=== PATIENT | female | born 1995 | race Caucasian/White ===

== ENCOUNTER 2017-08-29 11:15 | Inpatient (IN) | payer MEDICAID ==
[~2017-08-29] VITALS: Ht 30.5 cm; Wt 0.5 kg
[~2017-08-29 11:15] MED LIST: PREN-96 PO
[2017-08-29] MEDS ORDERED: LACTATED RINGER'S 1,000 ML IV SCH (12:48)
[2017-08-29] MEDS: LACTATED RINGER'S 1,000 ML IV SCH ×2 (12:59→14:57)
[2017-08-29] MEDS ORDERED: NALBUPHINE HCL 10 MG/1ml INJECTION IM PRN (13:30)
[2017-08-29] MEDS ORDERED: WITCH HAZEL-GLYCERIN PAD TOP PRN (13:30)
[2017-08-29] MEDS ORDERED: PHISODERM TOP SOLN 240ML BTL TOP PRN (13:30)
[2017-08-29] MEDS ORDERED: DERMOPLAST 60ML BOTTLE TOP PRN (13:30)
[2017-08-29 13:39] LABS: Basophils # (auto) 0 uL; Eosinophils # (auto) 0 uL; Hemoglobin 10.5 g/dL (12.2-16.2); Monocytes # (auto) 1.2 uL
[2017-08-29 13:40] LABS: Basophils % (auto) 0.3 % (0.0-2.0); Eosinophils % (auto) 0.5 % (0.0-7.0); Lymphocytes # (auto) 1.6 uL; Lymphocytes % (auto) 17.5 % (10.0-50.0); Mean Corpuscular Hemoglobin 23.9 pg (28.0-32.0); Mean Corpuscular Hgb Conc. 31.9 g/dL (32.0-36.0); Mean Corpuscular Volume 74.9 fL (80.0-100.0); Monocytes % (auto) 13.5 % (0.0-12.0); Neutrophils # (auto) 6.2 uL; Neutrophils % (auto) 68.2 % (37.0-80.0); Nucleated Red Blood Cells % 0.1 %; Platelet Count (auto) 248 10^3/uL (140-450); Red Blood Cells 4.41 10^6/uL (4.0-5.20); Red Cell Distribution Width 16.2 % (11.8-14.3); Urine Bacteria NONE SEEN /hpf (None Seen); Urine Blood Negative /uL (Negative); Urine Mucus FEW (None Seen); Urine Specific Gravity 1.034 (1.001-1.035); Urine WBC 1 /hpf (0 - 5); White Blood Cell 9.2 10^3/uL (4.4-10.8)
[2017-08-29 13:51] LABS: INR 0.91 (0.9-1.15); Partial Thromboplastin Time 28.6 sec (22.64-33.71); Prothrombin Time 9.9 sec (9.37-12.3)
[2017-08-29 14:01] LABS: Albumin 2.8 g/dL (3.4-5.0); BUN/Creatinine Ratio 23.4; Bilirubin, Total 0.6 mg/dL (0.2-1.0); Calcium 8.5 mg/dL (8.5-10.1); Potassium 3.9 mmol/L (3.5-5.1); Total Protein 7.2 g/dL (6.4-8.2)
[2017-08-29] MEDS ORDERED: LACTATED RINGER'S 500 ML IV ONE (14:35)
[2017-08-29] MEDS ORDERED: TERBUTALINE SULFATE 1 MG/ML 1ML VIAL SC ONE (14:44)
[2017-08-29] MEDS ORDERED: TERBUTALINE SULFATE 1 MG/ML 1ML VIAL SC PRN (14:45)
[2017-08-29] MEDS ORDERED: NALBUPHINE HCL 10 MG/1ml INJECTION IV PRN (15:30)
[2017-08-29] MEDS ORDERED: ePHEDrine SULFATE 50 MG/ML AMP IV ONE ×2 (17:45→19:45)
[2017-08-29] MEDS ORDERED: fentaNYL W ROPIVACAINE 150 ML EPI SCH ×2 (17:45→19:45)
[2017-08-29] MEDS ORDERED: LIDOCAINE HCL 2 %PF INJ 10ML AMP IJ ONE (17:45)
[2017-08-29] MEDS ORDERED: fentaNYL CITRATE 100 MCG/2 ML VL IV ONE ×2 (17:45→19:45)
[2017-08-29] MEDS ORDERED: NALOXONE HCL 0.4 MG/ML VIAL IV ONE ×2 (17:45→19:45)
[2017-08-29] MEDS ORDERED: LACT. RINGERS/OXYTOCIN 20UNITS 1,000 ML IV SCH (18:46)
[2017-08-29] MEDS: HYDROCORTISONE 2.5% TOPICAL CREAM 30GM TUBE PR PRN (18:50)
[2017-08-29] MEDS ORDERED: METHYLERGONOVINE MALEATE 0.2 MG/ML AMP IM PRN (19:00)
[2017-08-29] MEDS ORDERED: LIDOCAINE 2%HCL (LOCAL ANESTH.) INJ 20ML MDV IJ ONE (19:00)
[2017-08-29] MEDS ORDERED: SODIUM CHLORIDE 0.9% 500 ML IV PRN (19:43)
[2017-08-30] MEDS: HYDROCORTISONE 2.5% TOPICAL CREAM 30GM TUBE PR PRN (01:00)
[2017-08-30] MEDS ORDERED: IBUPROFEN 600 MG TAB PO ONE (01:03)
[2017-08-30] MEDS ORDERED: ONDANSETRON HCL 4 MG/2 ML VIAL IV PRN (02:00)
[2017-08-30] MEDS: ACETAMINOPHEN 325 MG TAB PO PRN ×2 (02:59→08:16)
[2017-08-30 03:00] VITALS: BP 111/56
[2017-08-30] MEDS: IBUPROFEN 600 MG TAB PO PRN ×4 (05:22→23:40)
[2017-08-30 07:00] VITALS: BP 116/76
[2017-08-30] MEDS: DOCUSATE CALCIUM 240 MG CAP PO SCH (08:16)
[2017-08-30 11:20] VITALS: BP 118/72
[2017-08-30 15:23] VITALS: BP 113/61
[2017-08-30 19:00] VITALS: BP 113/69
[2017-08-30 23:04] VITALS: BP 107/56
[2017-08-31 03:15] VITALS: BP 109/64
[2017-08-31] MEDS: IBUPROFEN 600 MG TAB PO PRN (05:15)
[2017-08-31 07:00] VITALS: BP 103/63
[2017-08-31] MEDS: DOCUSATE CALCIUM 240 MG CAP PO SCH (09:14)
[2017-08-31] MEDS: ACETAMINOPHEN 325 MG TAB PO PRN (09:14)
[2017-08-31 11:00] VITALS: BP 110/74
== END 2017-08-31 14:40 | disposition home or self-care (01) | DRG 560 ==
LOC: LDRP 11:15 → OBSVTOIN 11:15 → LDRP 12:42
PROVIDERS: ADMIT Obstetrics & Gynecology; ATTEND Obstetrics & Gynecology
PROC: 10E0XZZ Delivery of Products of Conception, External Approach (ICD-10-PCS; principal; 2017-08-29)
PROC: 3E0R3BZ Introduction of Anesthetic Agent into Spinal Canal, Percutaneous Approach (ICD-10-PCS; 2017-08-29)
PROC: 00HU33Z Insertion of Infusion Device into Spinal Canal, Percutaneous Approach (ICD-10-PCS; 2017-08-29)
DX: O80 Encounter for full-term uncomplicated delivery (principal); Z37.0 Single live birth; Z3A.40 40 weeks gestation of pregnancy
CPT/HCPCS: 36415; 51702; 59025; 59409; 62282; 80053; 81001; 85025; 85610; 85730; 86850; 86900; 86901; 94760; 96361; 96372; 96375; J2590; J3010

== ENCOUNTER 2018-06-05 08:00 | Observation (INO) | payer MEDICAID, OTHER ==
[2018-06-05] MEDS ORDERED: TERBUTALINE SULFATE 1 MG/ML 1ML VIAL SC ONE (08:49)
[2018-06-05] MEDS: TERBUTALINE SULFATE 1 MG/ML 1ML VIAL SC SCH ×2 (08:52→09:14)
[2018-06-05] MEDS ORDERED: LACTATED RINGER'S 1,000 ML IV ONE (09:54)
[2018-06-05] MEDS ORDERED: LACTATED RINGER'S 500 ML IV ONE (10:15)
[2018-06-05 10:23] LABS: Urine Bacteria NONE SEEN /hpf (None Seen); Urine Blood Negative /uL (Negative); Urine Mucus MODERATE (None Seen); Urine Specific Gravity 1.038 (1.001-1.035); Urine WBC 1 /hpf (0 - 5)
[2018-06-05 10:34] LABS: Basophils # (auto) 0 uL; Basophils % (auto) 0.3 % (0.0-2.0); Eosinophils # (auto) 0.1 uL; Eosinophils % (auto) 0.6 % (0.0-7.0); Hematocrit 33.2 % (36.0-46.0); Hemoglobin 10.6 g/dL (12.2-16.2); Lymphocytes # (auto) 1.7 uL; Lymphocytes % (auto) 13.2 % (10.0-50.0); Mean Corpuscular Hemoglobin 24.3 pg (28.0-32.0); Mean Corpuscular Hgb Conc. 31.9 g/dL (32.0-36.0); Mean Corpuscular Volume 76.2 fL (80.0-100.0); Monocytes # (auto) 0.8 uL; Neutrophils # (auto) 10.5 uL; Neutrophils % (auto) 79.9 % (37.0-80.0); Platelet Count (auto) 219 10^3/uL (140-450); Red Blood Cells 4.35 10^6/uL (4.0-5.20); Red Cell Distribution Width 14.3 % (11.8-14.3); White Blood Cell 13.2 10^3/uL (4.4-10.8)
[2018-06-05 10:37] LABS: Albumin 2.7 g/dL (3.4-5.0); Calcium 8.1 mg/dL (8.5-10.1); Potassium 3.2 mmol/L (3.5-5.1)
[2018-06-05 10:40] LABS: BUN/Creatinine Ratio 16.9; Bilirubin, Total 0.3 mg/dL (0.2-1.0); Total Protein 6.9 g/dL (6.4-8.2)
[2018-06-05 22:59] LABS: Alcohol, Urine < 3.0 mg/dL (0-5); Amphetamine Screen, Urine NEGATIVE (NEGATIVE); Barbiturate Scree,Urine NEGATIVE (NEGATIVE); Benzodiazephine Screen, Urine NEGATIVE (NEGATIVE); Cannabinoid Screen, Urine NEGATIVE (NEGATIVE); Cocaine Screen, Urine NEGATIVE (NEGATIVE); Opiate Scree,Urine NEGATIVE (NEGATIVE); Phencyclidine Screen, Urine NEGATIVE (NEGATIVE)
== END 2018-06-05 13:40 | disposition home or self-care (01) | DRG 566 ==
LOC: LDRP 08:00
PROVIDERS: ADMIT Obstetrics & Gynecology; ATTEND Obstetrics & Gynecology
DX: O30.002 Twin pregnancy, unspecified number of placenta and unspecified number of amniotic sacs, second trimester (principal); O60.02 Preterm labor without delivery, second trimester; O62.9 Abnormality of forces of labor, unspecified; Z3A.21 21 weeks gestation of pregnancy
CPT/HCPCS: 36415; 59025; 76815; 80053; 80307; 81001; 81002; 85025; 96372; G0378; J3105; 96365; 96366

== ENCOUNTER 2018-08-06 11:52 | Observation (INO) | payer MEDICAID | END 2018-08-06 13:55 | disposition home or self-care (01) | DRG 566 | LOC: LDRP 11:52 | PROVIDERS: ADMIT Obstetrics & Gynecology; ATTEND Obstetrics & Gynecology | DX: O30.003 Twin pregnancy, unspecified number of placenta and unspecified number of amniotic sacs, third trimester (principal); Z3A.30 30 weeks gestation of pregnancy | CPT/HCPCS: 59025; 76818; 81002; G0378 ==

== ENCOUNTER 2018-08-13 15:43 | Observation (INO) | payer MEDICAID ==
[2018-08-13] MEDS ORDERED: FERR27TA2 PO (16:58)
[2018-08-13] MEDS ORDERED: NIF10C PO (16:58)
[2018-08-13] MEDS ORDERED: FOLI1TAB6 PO (16:58)
== END 2018-08-13 17:50 | disposition home or self-care (01) | DRG 566 ==
LOC: LDRP 15:43
PROVIDERS: ADMIT Obstetrics & Gynecology; ATTEND Obstetrics & Gynecology
DX: O30.003 Twin pregnancy, unspecified number of placenta and unspecified number of amniotic sacs, third trimester (principal); Z3A.31 31 weeks gestation of pregnancy
CPT/HCPCS: 59025; 76818; 81002; G0378

== ENCOUNTER 2018-09-07 07:40 | Observation (INO) | payer MEDICAID ==
[~2018-09-07] VITALS: Ht 177.8 cm; Wt 94.3 kg
[~2018-09-07 07:40] MED LIST changes: +FERR27TA2 PO; +FOLI1TAB6 PO; +NIF10C PO
[2018-09-07] MEDS ORDERED: LACTATED RINGER'S 1,000 ML IV ONE (08:08)
[2018-09-07] MEDS ORDERED: TERBUTALINE SULFATE 1 MG/ML 1ML VIAL SC SCH (08:15)
== END 2018-09-07 11:05 | disposition home or self-care (01) | DRG 563 ==
LOC: LDRP 07:40
PROVIDERS: ADMIT Specialist; ATTEND Specialist
DX: O60.03 Preterm labor without delivery, third trimester (principal); Z3A.34 34 weeks gestation of pregnancy
CPT/HCPCS: 59025; 76818; 81002; 96372; G0378; J3105

== ENCOUNTER 2018-09-08 10:45 | Observation (INO) | payer MEDICAID ==
[2018-09-08] MEDS ORDERED: NIFEdipine 10 MG CAP PO ONE (14:30)
== END 2018-09-08 15:50 | disposition home or self-care (01) | DRG 566 ==
LOC: LDRP 10:45
PROVIDERS: ADMIT Specialist; ATTEND Specialist
DX: O26.893 Other specified pregnancy related conditions, third trimester (principal); N89.8 Other specified noninflammatory disorders of vagina; R10.2 Pelvic and perineal pain; O21.2 Late vomiting of pregnancy; Z3A.34 34 weeks gestation of pregnancy
CPT/HCPCS: 59025; 76705; 76815; 81002; G0378; 96361; 96365

== ENCOUNTER 2018-09-14 15:31 | Observation (INO) | payer MEDICAID | END 2018-09-14 17:20 | disposition home or self-care (01) | DRG 566 | LOC: LDRP 15:31 | PROVIDERS: ADMIT Specialist; ATTEND Specialist | DX: O30.003 Twin pregnancy, unspecified number of placenta and unspecified number of amniotic sacs, third trimester (principal); O62.9 Abnormality of forces of labor, unspecified; Z3A.35 35 weeks gestation of pregnancy | CPT/HCPCS: 59025; 76818; 81002; G0378 ==

== ENCOUNTER 2018-09-28 09:10 | Inpatient (IN) | payer MEDICAID ==
[~2018-09-28] VITALS: Ht 180.3 cm; Wt 85.3 kg
[2018-09-28] MEDS ORDERED: LACT. RINGERS/OXYTOCIN 20UNITS 1,000 ML IV SCH (10:11)
[2018-09-28] MEDS ORDERED: LACTATED RINGER'S 1,000 ML IV SCH (10:11)
[2018-09-28] MEDS ORDERED: PHISODERM TOP SOLN 240ML BTL TOP PRN (10:15)
[2018-09-28] MEDS ORDERED: WITCH HAZEL-GLYCERIN PAD TOP PRN (10:15)
[2018-09-28] MEDS ORDERED: DERMOPLAST 60ML BOTTLE TOP PRN (10:15)
[2018-09-28] MEDS ORDERED: METHYLERGONOVINE MALEATE 0.2 MG/ML AMP IM PRN (10:15)
[2018-09-28] MEDS ORDERED: NALBUPHINE HCL 10 MG/1ml INJECTION IV PRN (10:15)
[2018-09-28 11:09] LABS: Basophils # (auto) 0 uL; Eosinophils # (auto) 0.1 uL; Hemoglobin 12.2 g/dL (12.2-16.2); Lymphocytes # (auto) 1.4 uL; Mean Corpuscular Hgb Conc. 32.6 g/dL (32.0-36.0); Monocytes # (auto) 1.1 uL
[2018-09-28 11:11] LABS: Basophils % (auto) 0.3 % (0.0-2.0); Eosinophils % (auto) 0.9 % (0.0-7.0); Hematocrit 37.3 % (36.0-46.0); Lymphocytes % (auto) 15.8 % (10.0-50.0); Mean Corpuscular Volume 76.8 fL (80.0-100.0); Monocytes % (auto) 12.5 % (0.0-12.0); Neutrophils # (auto) 6.2 uL; Neutrophils % (auto) 70.5 % (37.0-80.0); Platelet Count (auto) 216 10^3/uL (140-450); Red Blood Cells 4.86 10^6/uL (4.0-5.20); Red Cell Distribution Width 16.6 % (11.8-14.3); White Blood Cell 8.9 10^3/uL (4.4-10.8)
[2018-09-28 11:20] LABS: INR 0.89 (0.9-1.15); Partial Thromboplastin Time 26.7 sec (23.78-33.04); Prothrombin Time 9.6 sec (9.27-12.13)
[2018-09-28 11:53] LABS: Calcium 8.9 mg/dL (8.5-10.1); Potassium 3.8 mmol/L (3.5-5.1)
[2018-09-28 12:03] LABS: Albumin 2.7 g/dL (3.4-5.0)
[2018-09-28 12:31] LABS: BUN/Creatinine Ratio 10.2; Bilirubin, Total 0.5 mg/dL (0.2-1.0)
[2018-09-28 13:31] LABS: Urine Bacteria FEW /hpf (None Seen); Urine Blood Negative /uL (Negative); Urine Mucus FEW (None Seen); Urine WBC 2 /hpf (0 - 5)
[2018-09-28 14:57] LABS: Alcohol, Urine < 3.0 mg/dL (0-5); Amphetamine Screen, Urine NEGATIVE (NEGATIVE); Barbiturate Scree,Urine NEGATIVE (NEGATIVE); Benzodiazephine Screen, Urine NEGATIVE (NEGATIVE); Cannabinoid Screen, Urine NEGATIVE (NEGATIVE); Cocaine Screen, Urine NEGATIVE (NEGATIVE); Opiate Scree,Urine NEGATIVE (NEGATIVE); Phencyclidine Screen, Urine NEGATIVE (NEGATIVE)
[2018-09-28] MEDS ORDERED: PROMETHAZINE HCL 25 MG/ML 1ML ONE (15:27)
[2018-09-28] MEDS ORDERED: PROMETHAZINE HCL 25 MG/ML 1ML IV PRN (15:30)
[2018-09-28 17:15] LABS: Uric Acid 4.4 mg/dL (2.6-6.0)
[2018-09-28] MEDS ORDERED: ePHEDrine SULFATE 50 MG/ML AMP IV ONE ×2 (17:15→19:45)
[2018-09-28] MEDS ORDERED: fentaNYL W ROPIVACAINE 150 ML EPI SCH ×2 (17:15→19:45)
[2018-09-28] MEDS ORDERED: LIDOCAINE W/ EPINEPHRINE 1 % INJ 30ML ONE (18:10)
[2018-09-28] MEDS ORDERED: SODIUM CHLORIDE 0.9% 500 ML IV PRN (19:40)
[2018-09-28] MEDS ORDERED: NALOXONE HCL 0.4 MG/ML VIAL IV ONE (19:45)
[2018-09-28] MEDS ORDERED: CARBOPROST TROMETHAMINE 250 MCG/1ML VIAL IM ONE (21:28)
[2018-09-28] MEDS ORDERED: SUCCINYLCHOLINE CHLORIDE 20 MG/ML 10ML VIAL IV ONE (21:28)
[2018-09-28] MEDS ORDERED: OXYTOCIN 10 UNIT/ML 10ML VIAL ONE ×2 (22:09→22:10)
[2018-09-28] MEDS ORDERED: PROPOFOL 10 MG/ML 20 ML IV ONE (22:15)
[2018-09-28] MEDS ORDERED: fentaNYL CITRATE 100 MCG/2 ML VL ONE (22:15)
[2018-09-28] MEDS ORDERED: ROCURONIUM 10MG/ML 10ML VIAL IV ONE (22:22)
[2018-09-28] MEDS ORDERED: MIDAZOLAM HCL 1MG/1ML-2 ML VIAL ONE ×2 (22:48→23:24)
[2018-09-28 23:25] VITALS: BP 129/67
[2018-09-28] MEDS ORDERED: ePHEDrine SULFATE 50 MG/ML AMP IV PRN (23:45)
[2018-09-28] MEDS ORDERED: hydrALAZINE HCL 20 MG/ML VL IV PRN (23:45)
[2018-09-28] MEDS ORDERED: HYDROmorphone HCL 2 MG/ML VL IV PRN (23:45)
[2018-09-28] MEDS ORDERED: ONDANSETRON HCL 4 MG/2 ML VIAL IV ONE (23:45)
[2018-09-29] VITALS (13 sets, daily range): BP systolic 112–122; BP diastolic 55–75
[2018-09-29] MEDS ORDERED: OXYTOCIN 10UNIT/ML 1ML VIAL ONE (00:07)
[2018-09-29] MEDS ORDERED: HYDROmorphone HCL 2 MG/ML VL IV PRN (00:15)
[2018-09-29] MEDS ORDERED: ONDANSETRON HCL 4 MG/2 ML VIAL IV PRN (00:15)
[2018-09-29] MEDS ORDERED: HYDROmorphone HCL 2 MG/ML VL ONE (00:16)
[2018-09-29] MEDS: HYDROmorphone HCL 2 MG/ML VL IV PRN ×5 (00:19→04:22)
--- NOTE | 2018-09-29 00:46 | NUR ---
Post Op for LDRP: Received patient from PACU via bed to room 1. Patient A/A/Ox4, abdominal binder and bilateral SCD's are in place, IV fluids placed on pump and infusing per order, incisional site dressing clean/dry/intact and Govea Catheter to gravity draining clear yellow urine. Incentive Spirometer at bedside and instruction on proper use with return demonstration done by patient.
[2018-09-29] MEDS ORDERED: ACETAMINOPHEN IV 1000 MG/100ML (10MG/ML) IV PRN (01:15)
[2018-09-29 01:57] LABS: White Blood Cell 18.3 10^3/uL (4.4-10.8)
[2018-09-29 01:59] LABS: Basophils # (auto) 0.1 uL; Basophils % (auto) 0.3 % (0.0-2.0); Eosinophils # (auto) 0 uL; Hemoglobin 11.6 g/dL (12.2-16.2); Lymphocytes # (auto) 1.2 uL; Lymphocytes % (auto) 6.7 % (10.0-50.0); Mean Corpuscular Hemoglobin 26.1 pg (28.0-32.0); Mean Corpuscular Hgb Conc. 32.3 g/dL (32.0-36.0); Mean Corpuscular Volume 80.8 fL (80.0-100.0); Monocytes # (auto) 1.6 uL; Monocytes % (auto) 8.9 % (0.0-12.0); Neutrophils # (auto) 15.4 uL; Neutrophils % (auto) 84.1 % (37.0-80.0); Nucleated Red Blood Cells % 0.1 %; Platelet Count (auto) 164 10^3/uL (140-450); Red Blood Cells 4.45 10^6/uL (4.0-5.20); Red Cell Distribution Width 17.3 % (11.8-14.3)
[2018-09-29] MEDS: ceFAZolin 1GM/50ML 50 ML IV SCH ×3 (05:42→21:49)
--- NOTE | 2018-09-29 06:10 | NUR ---
ASSUMED CARE OF STABLE PT AFTER RECEIVING REPORT FROM Dre BAIG RN.
[2018-09-29 07:07] LABS: RPR Non Reactive (Non Reactive)
--- NOTE | 2018-09-29 10:00 | NUR ---
CREAM DIPPER NOTIFIED AND INFORMED THAT A 0600 CBC WAS ORDERED AND HAS NOT BEEN DRAWN. TECH STATES THEY ARE REALLY SHORT STAFFED AND IT WILL BE DRAWN.
--- NOTE | 2018-09-29 11:40 | NUR ---
DR ALEGRE AT BEDSIDE TO CHECK ON PT STATUS. DOCTOR ASSESSED URINE OUTPUT AND UPDATED PT ON THE HOW THE SURGERY WENT. WILL CONTINUE PLAN OF CARE FOR PT.
--- NOTE | 2018-09-29 11:50 | NUR ---
LAB AT BEDSIDE TO DRAW CBC.
[2018-09-29] MEDS: LACTATED RINGER'S 1,000 ML IV SCH (12:00)
[2018-09-29] MEDS ORDERED: HYDROcodone-ACET 5/325MG TAB PO PRN (12:15)
[2018-09-29 12:24] LABS: Basophils # (auto) 0 uL; Eosinophils # (auto) 0 uL; Eosinophils % (auto) 0.3 % (0.0-7.0); Lymphocytes # (auto) 1.5 uL; Mean Corpuscular Hemoglobin 26.4 pg (28.0-32.0)
[2018-09-29 12:26] LABS: Basophils % (auto) 0.1 % (0.0-2.0); Hematocrit 31.3 % (36.0-46.0); Hemoglobin 10.1 g/dL (12.2-16.2); Lymphocytes % (auto) 9.3 % (10.0-50.0); Mean Corpuscular Hgb Conc. 32.3 g/dL (32.0-36.0); Mean Corpuscular Volume 81.7 fL (80.0-100.0); Monocytes # (auto) 1.8 uL; Neutrophils # (auto) 12.9 uL; Neutrophils % (auto) 79.3 % (37.0-80.0); Platelet Count (auto) 158 10^3/uL (140-450); Red Blood Cells 3.83 10^6/uL (4.0-5.20); Red Cell Distribution Width 17.2 % (11.8-14.3); White Blood Cell 16.3 10^3/uL (4.4-10.8)
[2018-09-29] MEDS: HYDROcodone-ACET 5/325MG TAB PO PRN ×3 (13:21→21:47)
--- NOTE | 2018-09-29 13:21 | NUR ---
PT MEDICATED WITH NORCO 10 MG PO PER ORDERS FOR INCISIONAL PAIN RATING 7/10.
[2018-09-29] MEDS ORDERED: DOCUSATE SOD 100 MG CAP PO ONE (13:33)
--- NOTE | 2018-09-29 17:04 | NUR ---
PT MEDICATED WITH NORCO 10 MG PO PER ORDERS FOR INCISIONAL PAIN RATING 7/10.
--- NOTE | 2018-09-29 17:30 | NUR ---
VALLEJO CATH REMOVED, 700 ML'S OF JASON URINE NOTED, PT TOLERATED WELL.
--- NOTE | 2018-09-29 17:45 | NUR ---
Ambulation: Pericare complete while pt still in bed. Patient OOB with standby assistance by RN and DENISE. Patient ambulated a few steps very slowly. Clean gown provided and bed linen changed. Patient ambulated back to bed with very slow steady gait assisted by Horacio WALKER RN and this RN, polly rey applied with assistance from Dre Noble RN. Pt condition stable at this time.
--- NOTE | 2018-09-29 19:00 | NUR ---
REPORT ON STABLE PT TO Dre BALDWIN RN.
--- NOTE | 2018-09-29 19:40 | NUR ---
Visual assessment of incision complete. Incision open to air, clean, dry, without any noted redness/drainage or warmth at site.
[2018-09-29] MEDS ORDERED: ceFAZolin 1GM/50ML 50 ML IV ONE (21:12)
[2018-09-29] MEDS: DOCUSATE SOD 100 MG CAP PO SCH (21:47)
[2018-09-30 03:17] VITALS: BP 119/74
[2018-09-30] MEDS: HYDROcodone-ACET 5/325MG TAB PO PRN ×5 (04:21→22:51)
[2018-09-30 07:17] LABS: Basophils # (auto) 0 uL; Eosinophils # (auto) 0 uL; Eosinophils % (auto) 0.1 % (0.0-7.0)
[2018-09-30 07:20] LABS: Basophils % (auto) 0.1 % (0.0-2.0); Hematocrit 27.7 % (36.0-46.0); Hemoglobin 9.1 g/dL (12.2-16.2); Lymphocytes # (auto) 1.4 uL; Lymphocytes % (auto) 10.3 % (10.0-50.0); Mean Corpuscular Hemoglobin 26.5 pg (28.0-32.0); Mean Corpuscular Hgb Conc. 32.9 g/dL (32.0-36.0); Mean Corpuscular Volume 80.5 fL (80.0-100.0); Monocytes # (auto) 1.3 uL; Monocytes % (auto) 9.8 % (0.0-12.0); Neutrophils # (auto) 10.7 uL; Neutrophils % (auto) 79.7 % (37.0-80.0); Platelet Count (auto) 173 10^3/uL (140-450); Red Blood Cells 3.44 10^6/uL (4.0-5.20); White Blood Cell 13.4 10^3/uL (4.4-10.8)
[2018-09-30 08:05] VITALS: BP 123/73
[2018-09-30] MEDS: SIMETHICONE 80 MG CHEWABLE TABLET PO PRN ×3 (09:01→22:50)
[2018-09-30] MEDS: DOCUSATE SOD 100 MG CAP PO SCH ×2 (10:30→22:50)
[2018-09-30 10:43] VITALS: BP 96/67
[2018-09-30 15:59] VITALS: BP 121/77
[2018-09-30] MEDS: LACTATED RINGER'S 1,000 ML IV SCH (18:00)
--- NOTE | 2018-09-30 19:19 | NUR ---
Lower abdominal incision clean, dry and well approximated. [place] present and intact. Addendum: 09/30/18 at 1921 by Kailee Noble RN Amended: Links added.
[2018-09-30 19:22] VITALS: BP 124/79
[2018-09-30] MEDS: IBUPROFEN 800 MG TAB PO PRN (21:17)
[2018-09-30 22:55] VITALS: BP 117/59
[2018-10-01] MEDS: LACTATED RINGER'S 1,000 ML IV SCH (02:00)
[2018-10-01 03:00] VITALS: BP 119/75
[2018-10-01] MEDS: HYDROcodone-ACET 5/325MG TAB PO PRN ×5 (04:36→21:51)
[2018-10-01] MEDS: IBUPROFEN 800 MG TAB PO PRN ×3 (06:01→23:21)
[2018-10-01 07:30] VITALS: BP 110/72
[2018-10-01] MEDS ORDERED: diphenhdrAMINE HCL 50 MG/1 ML VL IV PRN (08:00)
[2018-10-01] MEDS: DOCUSATE SOD 100 MG CAP PO SCH ×2 (10:00→22:00)
[2018-10-01 11:30] VITALS: BP 111/59
[2018-10-01] MEDS: SIMETHICONE 80 MG CHEWABLE TABLET PO PRN (14:58)
[2018-10-01 15:30] VITALS: BP 119/63
[2018-10-01 18:45] VITALS: BP 125/76
[2018-10-01 23:02] VITALS: BP 125/71
[2018-10-02] MEDS: HYDROcodone-ACET 5/325MG TAB PO PRN ×2 (02:28→08:17)
[2018-10-02 03:07] VITALS: BP 125/71
[2018-10-02] MEDS ORDERED: TETANUS-DIPTH-ACEL PERTUSSIS 0.5ML SYRG IM ONE (04:15)
[2018-10-02] MEDS ORDERED: diphenhdrAMINE HCL 25 MG CAP PO ONE (04:45)
[2018-10-02 07:00] VITALS: BP 126/60
--- NOTE | 2018-10-02 08:00 | NUR ---
Astrid Gonzalez belt fixer made rounds with SMO[employer] [facility]itt. Sbar given. Carlos removed shaista. Placed steri strips to site. Pt tolerated well. No redness, edema, ecchimosis, drainage, edges well approximated.
[2018-10-02] MEDS: DOCUSATE SOD 100 MG CAP PO SCH (10:00)
[2018-10-02 11:00] VITALS: BP 116/65
[2018-10-02] MEDS: IBUPROFEN 800 MG TAB PO PRN (12:43)
--- NOTE | 2018-10-02 13:00 | NUR ---
Discharge: Discharge instructions given as ordered. 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 All questions and concerns addressed. Patient verbalized understanding. Medication reconciliation completed and copy given to patient. All required/requested vaccines given and copies of vaccinations given to patient. Patient encouraged to prepare to depart unit.
--- NOTE | 2018-10-02 14:21 | NUR ---
Discharge: Patient taken to vehicle via wheelchair with all personal belongings, accompanied by staff and family member. No distress noted at time of departure, no adverse changes in status since initial assessment.
== END 2018-10-02 14:20 | disposition home or self-care (01) | DRG 540 ==
LOC: LDRP 09:10
PROVIDERS: ADMIT Specialist; ATTEND Specialist
PROC: 10D00Z1 Extraction of Products of Conception, Low, Open Approach (ICD-10-PCS; 2018-09-28)
PROC: 3E0S3BZ Introduction of Anesthetic Agent into Epidural Space, Percutaneous Approach (ICD-10-PCS; 2018-09-28)
PROC: 00HU33Z Insertion of Infusion Device into Spinal Canal, Percutaneous Approach (ICD-10-PCS; 2018-09-28)
PROC: 10907ZC Drainage of Amniotic Fluid, Therapeutic from Products of Conception, Via Natural or Artificial Opening (ICD-10-PCS; 2018-09-28)
PROC: 10E0XZZ Delivery of Products of Conception, External Approach (ICD-10-PCS; 2018-09-28)
PROC: 30233N1 Transfusion of Nonautologous Red Blood Cells into Peripheral Vein, Percutaneous Approach (ICD-10-PCS; 2018-09-28)
PROC: 0UB70ZZ Excision of Bilateral Fallopian Tubes, Open Approach (ICD-10-PCS; principal; 2018-09-28 22:05)
PROC: 30233K1 Transfusion of Nonautologous Frozen Plasma into Peripheral Vein, Percutaneous Approach (ICD-10-PCS; 2018-09-29)
DX: O32.1XX0 Maternal care for breech presentation, not applicable or unspecified (principal); Z37.2 Twins, both liveborn; O30.043 Twin pregnancy, dichorionic/diamniotic, third trimester; O62.2 Other uterine inertia; O67.9 Intrapartum hemorrhage, unspecified; Z30.2 Encounter for sterilization; Z3A.37 37 weeks gestation of pregnancy
CPT/HCPCS: 36415; 36430; 51702; 59025; 59409; 62282; 76815; 80053; 80307; 81001; 81002; 84550; 85025; 85610; 85730; 86592; 86850; 86900; 86901; 86920; 90715; 94002; 94762; 96361; 96365; 96366; 96374; 96375; A6257; G0378; J0131; J0330; J0690; J2250; J2590; J2704; J3010

== ENCOUNTER 2020-03-22 10:27 | Emergency (ER) | payer MEDICAID ==
[~2020-03-22] VITALS: Ht 180.3 cm; Wt 72.6 kg
[~2020-03-22 10:27] MED LIST changes: -NIF10C PO
[2020-03-22 11:06] LABS: Eosinophils # (auto) 0.1 10 ^3/uL (0-0.8); Eosinophils % (auto) 1.5 % (0.0-7.0); Lymphocytes % (auto) 29.3 % (10.0-50.0); Monocytes # (auto) 0.7 10 ^3/uL (0-1.3); Neutrophils # (auto) 3.6 10 ^3/uL (1.6-8.6)
[2020-03-22 11:08] LABS: Basophils # (auto) 0 10 ^3/uL (0-0.2); Basophils % (auto) 0.7 % (0.0-2.0); Hematocrit 36.9 % (36.0-46.0); Hemoglobin 11.8 g/dL (12.2-16.2); Lymphocytes # (auto) 1.8 10 ^3/uL (0.4-5.4); Mean Corpuscular Hemoglobin 23.7 pg (28.0-32.0); Mean Corpuscular Hgb Conc. 32.1 g/dL (32.0-36.0); Mean Corpuscular Volume 73.7 fL (80.0-100.0); Neutrophils % (auto) 57.5 % (37.0-80.0); Nucleated Red Blood Cells % 0.1 %; Platelet Count (auto) 349 10^3/uL (140-450); Red Cell Distribution Width 15.9 % (11.8-14.3); White Blood Cell 6.2 10^3/uL (4.4-10.8)
[2020-03-22 11:23] LABS: Albumin 3.8 g/dL (3.4-5.0); Potassium 3.7 mmol/L (3.5-5.1)
[2020-03-22 11:27] LABS: Bilirubin, Total 0.5 mg/dL (0.2-1.0); Total Protein 7.7 g/dL (6.4-8.2)
[2020-03-22 15:00] VITALS: BP 132/91
[2020-03-22 15:18] LABS: Urine Bacteria FEW /hpf (None Seen); Urine Blood 3+ /uL (Negative); Urine Mucus FEW (None Seen); Urine Specific Gravity 1.031 (1.001-1.035); Urine WBC 10 /hpf (0 - 5)
== END 2020-03-22 16:30 | disposition home or self-care (01) ==
LOC: ER 10:27
DX: O20.9 Hemorrhage in early pregnancy, unspecified (principal)
CPT/HCPCS: 36415; 76801; 80053; 81001; 84702; 85025

== ENCOUNTER 2020-03-24 08:44 | Emergency (ER) | payer MEDICAID ==
[~2020-03-24] VITALS: Ht 180.3 cm; Wt 72.6 kg
[2020-03-24 09:21] LABS: Urine Bacteria FEW /hpf (None Seen); Urine Blood 3+ /uL (Negative); Urine Mucus FEW (None Seen); Urine Specific Gravity 1.012 (1.001-1.035); Urine WBC <1 /hpf (0 - 5)
[2020-03-24 10:23] VITALS: BP 128/88
== END 2020-03-24 10:46 | disposition home or self-care (01) ==
LOC: ER 08:44
DX: O20.0 Threatened abortion (principal)
CPT/HCPCS: 36415; 81001; 84702

== ENCOUNTER 2021-06-24 11:14 | Emergency (ER) | payer MEDICAID ==
[~2021-06-24] VITALS: Ht 180.3 cm; Wt 81.6 kg
[2021-06-24 12:20] LABS: Basophils # (auto) 0.1 10 ^3/uL (0-0.2); Basophils % (auto) 0.9 % (0.0-2.0); Eosinophils # (auto) 0.2 10 ^3/uL (0-0.8); Eosinophils % (auto) 2.7 % (0.0-7.0); Lymphocytes # (auto) 1.8 10 ^3/uL (0.4-5.4); Mean Corpuscular Hgb Conc. 32.4 g/dL (32.0-36.0); Neutrophils # (auto) 3.7 10 ^3/uL (1.6-8.6); White Blood Cell 6.1 10^3/uL (4.4-10.8)
[2021-06-24 12:22] LABS: Hematocrit 37.7 % (36.0-46.0); Hemoglobin 12.2 g/dL (12.2-16.2); Lymphocytes % (auto) 29.4 % (10.0-50.0); Monocytes # (auto) 0.5 10 ^3/uL (0-1.3); Monocytes % (auto) 7.5 % (0.0-12.0); Neutrophils % (auto) 59.5 % (37.0-80.0); Red Cell Distribution Width 14.2 % (11.8-14.3)
[2021-06-24 12:26] LABS: Urine Bacteria FEW /hpf (None Seen); Urine Blood 1+ /uL (Negative); Urine Specific Gravity 1.016 (1.001-1.035); Urine WBC 15 /hpf (0 - 5)
[2021-06-24 12:36] LABS: INR 1.09 (0.9-1.15); Partial Thromboplastin Time 22.8 sec (23.6-33.0)
[2021-06-24 12:40] LABS: Albumin 3.9 g/dL (3.4-5.0); Calcium 9.1 mg/dL (8.5-10.1); Potassium 3.7 mmol/L (3.5-5.1)
[2021-06-24 12:43] LABS: BUN/Creatinine Ratio 19.6; Bilirubin, Total 0.4 mg/dL (0.2-1.0)
[2021-06-24 15:05] VITALS: BP 112/59
== END 2021-06-24 15:09 | disposition home or self-care (01) ==
LOC: ER 11:14
DX: K52.9 Noninfective gastroenteritis and colitis, unspecified (principal); N39.0 Urinary tract infection, site not specified; Z32.02 Encounter for pregnancy test, result negative; Z20.822 Contact with and (suspected) exposure to COVID-19; Z98.51 Tubal ligation status
CPT/HCPCS: 36415; 71045; 74176; 80053; 81001; 81025; 85025; 85610; 85730; 87426

== ENCOUNTER 2024-10-16 16:09 | Emergency (ER) | payer OTHER, MEDICAID ==
[~2024-10-16] VITALS: Ht 180.3 cm; Wt 78.2 kg
[~2024-10-16 16:09] MED LIST changes: +FERR1TAB31 PO; -FERR27TA2 PO; +FOLI-119 PO; -FOLI1TAB6 PO
[2024-10-16 16:21] VITALS: BP 131/74; PULSE 118; RESP 18; TEMP 99.9; O2SAT 100
[2024-10-16 16:56] LABS: Urine Bacteria FEW /hpf (None Seen); Urine Blood TRACE /uL (Negative); Urine Clarity Turbid (Clear); Urine Color Colorless (Yellow); Urine Protein, UAD Negative (Negative); Urine Specific Gravity 1.008 (1.001-1.035); Urine Squamous Epithelial Cell FEW /hpf (<5); Urine Urobilinogen Normal (Negative); Urine WBC 5 /HPF (0-5)
== END 2024-10-16 18:59 | disposition left against medical advice (07) ==
LOC: ER 16:09
DX: M54.9 Dorsalgia, unspecified (principal); Z53.21 Procedure and treatment not carried out due to patient leaving prior to being seen by health care provider
CPT/HCPCS: 81001